=== PATIENT | male | born 1975 | race Hispanic/Latino ===

== ENCOUNTER 2020-01-22 02:54 | Inpatient (IN) | payer BC, OTHER ==
[~2020-01-22] VITALS: Ht 170.2 cm; Wt 72.1 kg
[2020-01-22 03:28] LABS: BASOPHILS % (AUTO) 0.4 % (0.0-5.0); EOSINOPHILS % (AUTO) 2.4 % (0.0-8.0); HEMATOCRIT 34.7 % (42-54); LYMPHOCYTES % (AUTO) 20.1 % (21.0-51.0); MEAN CORPUSCULAR HEMOGLOBIN 28.9 pg (27.0-33.0); MONOCYTES % (AUTO) 6.7 % (3.0-13.0); NEUTROPHILS % (AUTO) 69.9 % (40.0-77.0); PLATELET COUNT (AUTO) 370 K/uL (130-400); RED BLOOD CELL COUNT(AUTO) 4.08 MIL/uL (4.50-6.20); RED CELL DISTRIBUTION WIDTH 11.1 % (11.0-15.5); WHITE BLOOD COUNT (AUTO) 11.7 K/uL (4.8-10.8)
[2020-01-22 04:00] LABS: CREATININE 1.7 mg/dL (0.5-1.5)
[2020-01-22 04:04] LABS: ALBUMIN 3.3 g/dL (3.5-5.0); BILIRUBIN,TOTAL 0.2 mg/dL (0.2-1.0); CRP QUANTITATIVE 52.6 mg/L (0.00-9.0); TOTAL PROTEIN, SERUM 8.5 g/dL (6.0-8.3)
[2020-01-22 04:31] LABS: ERYTHROCYTE SEDIMENTATION RATE 65 MM/HR (0-15)
[2020-01-22] MEDS ORDERED: DEXTROSE 50%-WATER 50 ML DISP.SYRIN IV PRN (04:45)
[2020-01-22] MEDS ORDERED: GLUCAGON 1MG KIT 1 MG ML IM PRN (04:45)
[2020-01-22] MEDS ORDERED: ACETAMINOPHEN 325 MG TAB PO PRN ×2 (05:15)
[2020-01-22] MEDS ORDERED: ONDANSETRON HCL 4 MG/2 ML VIAL IV PRN (05:15)
[2020-01-22 05:45] VITALS: BP 145/88
[2020-01-22] MEDS: SODIUM CHLORIDE 0.9% 1000ML 1,000 ML IV SCH ×2 (06:26→17:10)
[2020-01-22] MEDS: CEFTRIAXONE SODIUM 1 GM IVP SCH ×2 (06:26→17:09)
[2020-01-22] MEDS: INSULIN HUMULIN R 100 UNIT/ML 3ML SQ SCH ×4 (06:26→21:00)
[2020-01-22 07:30] VITALS: BP 143/90
[2020-01-22] MEDS ORDERED: SULF1TAB42 PO (07:31)
[2020-01-22] MEDS ORDERED: METF-446 PO (07:31)
[2020-01-22] MEDS ORDERED: LEVO750T46 PO (07:31)
[2020-01-22] MEDS: FAMOTIDINE/PF 20 MG/2 ML VIAL IV SCH ×2 (09:10→19:34)
[2020-01-22 13:07] VITALS: BP 146/91
--- NOTE | 2020-01-22 13:57 | NUR ---
consult for dr. garcia. Called and orders put in.
[2020-01-22 16:00] VITALS: BP 125/79
--- NOTE | 2020-01-22 16:31 | NUR ---
INITIAL SW spoke to patient's spouse, Esther Rios, [phone]. He has no home services. DME: glucometer (no insulin). Patient is able to complete ADL's and drives. 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 PCP is Dr. Raphael Grullon. Pharmacy is [facility] located on [address] [place] [address]. DCP is home Addendum: 01/22/20 at 1633 by ZULY NICK Amended: Links added. Addendum: 01/22/20 at 1635 by ZULY CARR SS Patient has no insurance or benefits. He is a [place] citizen and has worked in the . SW educated patient's spouse on [facility] $4 medication program and [facility] $5 medication program. Patient is being assisted by [employer] for financial matters.
[2020-01-22 20:00] VITALS: BP 152/94
--- NOTE | 2020-01-22 20:20 | NUR ---
Nursing Note Dr. Kiana Bruno arrived to floor and did wound care. Dr. Bruno explained to pt the procedure he wanted to have done and answered pt's questions.
--- NOTE | 2020-01-22 22:35 | NUR ---
Nursing Note Spoke with KATI Haas Informed her that pt doesn't want to sign the consent at this time. Pt would like a second opinion before the procedure. KATI Haas stated they would round in the AM and talk to him. I informed the pt and he understands.
[2020-01-22 23:49] VITALS: BP 141/93
[2020-01-23 03:53] LABS: BASOPHILS % (AUTO) 0.3 % (0.0-5.0); EOSINOPHILS % (AUTO) 1.8 % (0.0-8.0); HEMATOCRIT 29.8 % (42-54); LYMPHOCYTES % (AUTO) 20.6 % (21.0-51.0); MEAN CORPUSCULAR HEMOGLOBIN 28.6 pg (27.0-33.0); MEAN CORPUSCULAR HGB CONC 33.9 g/dL (32.0-36.0); MEAN CORPUSCULAR VOLUME 84.4 fL (79-99); MONOCYTES % (AUTO) 8.3 % (3.0-13.0); NEUTROPHILS % (AUTO) 68.6 % (40.0-77.0); PLATELET COUNT (AUTO) 319 K/uL (130-400); RED BLOOD CELL COUNT(AUTO) 3.53 MIL/uL (4.50-6.20); RED CELL DISTRIBUTION WIDTH 11.2 % (11.0-15.5); WHITE BLOOD COUNT (AUTO) 8.9 K/uL (4.8-10.8)
[2020-01-23 04:00] VITALS: BP 138/89
[2020-01-23 05:09] LABS: ALBUMIN 2.9 g/dL (3.5-5.0); BILIRUBIN,TOTAL 0.2 mg/dL (0.2-1.0); CREATININE 1.5 mg/dL (0.5-1.5); POTASSIUM 4.3 mmol/L (3.5-5.1); TOTAL PROTEIN, SERUM 7.5 g/dL (6.0-8.3)
[2020-01-23] MEDS: CEFTRIAXONE SODIUM 1 GM IVP SCH (05:10)
[2020-01-23] MEDS: INSULIN HUMULIN R 100 UNIT/ML 3ML SQ SCH (05:32)
--- NOTE | 2020-01-23 06:49 | NUR ---
NURSING NOTE paged dr. Bruno to inform him that the pt wants a second opinion and doesn't want to have the surgery at this time until after a second opinion. waiting for call back
[2020-01-23 07:30] VITALS: BP 152/99
--- NOTE | 2020-01-23 07:30 | NUR ---
Received a call from Dr. Bruno that patient is refusing surgery and wants a second opinion. Dr. Bruno wanted me to go and talk to the patient. I visited patient and he stated that he doesn't want surgery and has found a Dr. Mendoza in [place] who he wants to go and see. I discussed with him that he has a right to refuse but it is not a guarantee that the MD in [place] will be able to see him since there's limited visits with providers due to the brizuela pandemic. The patient stated that he had discussed with his family and wants to try a different avenue of treatment. I informed the patient that he will have to sign a refusal of treatment form refusing surgery and since he is not discharged, he will have to sign out AMA. Patient verbalized understanding and said that he was okay with his decision. Primary nurse, CN and Director informed. I also placed a call to Dr. Bruno and informed him of patient's decision and he stated to cancel the surgery.
[2020-01-23] MEDS: SODIUM CHLORIDE 0.9% 1000ML 1,000 ML IV SCH (07:55)
--- NOTE | 2020-01-23 08:20 | NUR ---
PATIENT LEFT AMA PATIENT SIGNED REFUSAL OF TREATMENT TO HAVE SURGERY DONE AND REQUESTING TO LEAVE REPORTING HE IS GOING TO SEE ANOTHER DOCTOR IN [place] FOR A SECOND OPINION. RATIONALE EXPLAINED FOR SURGERY AND ANTIBIOTICS ALONG WITH RISKS AND COMPLICATIONS ASSOCIATED WITH INFECTION. HOWEVER, PT REFUSED AND SAID HE WOULD SEE ANOTHER DOCTOR IN [place]. NOTIFED DR YBARRA, VERBALIZED UNDERSTANDING.
[2020-01-23] MEDS: FAMOTIDINE/PF 20 MG/2 ML VIAL IV SCH (08:34)
== END 2020-01-23 08:55 | disposition left against medical advice (07) | DRG 300 ==
LOC: EDH 02:54 → EDHIP 02:55 → 4CH 05:38
PROVIDERS: ADMIT Internal Medicine; ATTEND Internal Medicine
DX: E11.52 Type 2 diabetes mellitus with diabetic peripheral angiopathy with gangrene (principal); N17.9 Acute kidney failure, unspecified; M86.8X7 Other osteomyelitis, ankle and foot; I96 Gangrene, not elsewhere classified; E11.621 Type 2 diabetes mellitus with foot ulcer; L97.519 Non-pressure chronic ulcer of other part of right foot with unspecified severity
CPT/HCPCS: 36415; 73218; 73620; 73718; 73721; 80053; 82948; 84145; 85025; 85651; 86140; 87040; 93926; G0378; J0696; J3490; J7030